=== PATIENT | male | born 1985 | race Caucasian/White ===

== ENCOUNTER 2021-11-23 08:27 | Outpatient (CLI) | payer OTHER, SELFPAY ==
[2021-11-23 14:08] LABS: Chloride* 106 mmol/L (96-114); Sodium* 139 mmol/L (135-149)
[2021-11-23 14:11] LABS: Blood Urea Nitrogen* 12 mg/dL (5-24); Carbon Dioxide* 19 mmol/L (20-32); Cholesterol* 154 mg/dL (90-199); Creatinine* 0.8 mg/dL (0.5-1.5); Estimated Glomerular Filt Rate 119 ml/min; Glucose* 110 mg/dL (60-115); Triglycerides* 243 mg/dL (40-149)
[2021-11-23 14:12] LABS: Calcium* 9.6 mg/dL (8.4-10.6); HDL Cholesterol* 29 mg/dL (>=40); LDL Cholesterol Calculated 76 mg/dL (<100)
== END 2021-11-23 08:28 | disposition home or self-care (01) ==
LOC: FBOREF 08:28
PROVIDERS: PCP Family Medicine; Visit Provider Family Medicine
DX: R03.0 Elevated blood-pressure reading, without diagnosis of hypertension (principal)
CPT/HCPCS: 80048; 80061

== ENCOUNTER 2025-03-20 12:53 | Outpatient (CLI) | payer OTHER, SELFPAY | END 2025-03-20 12:54 | disposition home or self-care (01) | LOC: NFLDREF 03-25 18:49 | PROVIDERS: PCP Family Medicine; Referring Provider Family Medicine; Visit Provider Family Medicine | DX: E78.00 Pure hypercholesterolemia, unspecified (principal); R03.0 Elevated blood-pressure reading, without diagnosis of hypertension | CPT/HCPCS: 80048; 80061 ==